=== PATIENT | female | born 1995 | race Caucasian/White ===

== ENCOUNTER 2018-09-22 12:18 | Emergency (ER) | payer OTHER ==
--- NOTE | 2018-09-22 12:31 | EDPHY ---
H & P Stated Complaint: Wound to right lower leg, not healing. Source: Patient Exam Limitations: No limitations - Personal History Current Tetanus Diphtheria and Acellular Pertussis (TDAP): Yes - Medical/Surgical History Hx Asthma: Yes Hx Chronic Respiratory Disease: No Hx Diabetes: Yes Hx Cardiac Disease: No Hx Renal Disease: No Hx Cirrhosis: No Hx Alcoholism: No Hx HIV/AIDS: No Hx Splenectomy or Spleen Trauma: No Other PMH: DM 1. Asthma. - Social History Smoking Status: Never smoked Time Seen by Provider: 09/22/18 12:26 HPI/ROS: HPI: This is a 23-year-old female who presents with Chief Complaint: Wound to right lower leg, not healing. Location: Right anterior leg Quality: Wound Duration: Several weeks Signs and Symptoms: No bleeding, no radiation, no numbness, no weakness, no tingling, no incontinence, no decreased range of motion, no swelling, no pain, no fever Timing: Not healing Severity: Moderate Context: Patient is a type 1 insulin diabetic, has insulin pump, blood sugars running in the 200, presents from primary care office with complaints of right anterior lower leg wound that has not healed over the last 2 months. Two months ago had a course of antibiotics. Has been performing local wound care without improvement in symptoms. 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 She stands on her feet approximately 8 hr per day during work. Denies dysuria, increased thirst, increased urination, fevers, radiation, weakness, decreased range of motion. Modifying Factors: Antibiotics and local wound care without improvement Comment: ROS: A comprehensive 10 system review of systems is otherwise negative aside from elements mentioned in the history of present illness. MEDICAL/SURGICAL/SOCIAL HISTORY: Medical history: Type 1 insulin-dependent diabetes mellitus, has insulin pump, asthma Surgical history: Denies Social history: Employed. Denies tobacco use. Drinks alcohol socially. CONSTITUTIONAL: Nontoxic-appearing young adult white female, awake and alert, no obvious distress HEENT: Atraumatic and normocephalic, PERRL, EOMI. Nares patent; no rhinorrhea; no nasal mucosal edema. Tympanic membranes clear. Oropharynx clear, no exudate and moist pink mucosa. Airway patent. No lymphadenopathy. No meningismus. Cardiovascular: Normal S1/S2, regular rate, regular rhythm, without murmur rub or gallop. PULMONARY/CHEST: Symmetrical and nontender. Clear to auscultation bilaterally. Good air movement. No accessory muscle usage. ABDOMEN: Soft, nondistended, nontender, no rebound, no guarding, no peritoneal signs, no masses or organomegaly. No CVAT. EXTREMITIES: 2/2 pulses, strength 5/5, left anterior watters shows hyperpigmented areas with healed ulcerations from the past. Right anterior watters shows 4 in x 2 and 0.5 in stage I/stage II ulceration with malodorous discharge; pink viable tissue and minimal surrounding erythema. No streaking. no clubbing, no cyanosis or edema. NEUROLOGICAL: no focal neuro deficits. GCS 15. SKIN: Warm and dry, no erythema. no rash. Good capillary refill. (Echo Edwards) Constitutional: Initial Vital Signs Temperature (C) 36.8 C 09/22/18 12:19 Heart Rate 97 09/22/18 12:19 Respiratory Rate 16 09/22/18 12:19 Blood Pressure 126/78 H 09/22/18 12:19 O2 Sat (%) 98 09/22/18 12:19 O2 Delivery Mode Room Air Allergies/Adverse Reactions: amoxicillin Allergy (Verified 09/22/18 12:22) Home Medications: Medication Instructions Recorded Humalog 09/22/18 Singulair 09/22/18 Medical Decision Making ED Course/Re-evaluation: Vital signs reviewed and stable upon arrival. No systemic signs to indicate SIRS. IV access, laboratory studies ordered 1245: ED decision to consult General surgery. Spoke with Dr. Marinelli who is now at bedside to evaluate the patient. Tetracaine/Marcaine placed; cleaned with Betadine; irrigated. Wet to dry dressing placed per Dr. Marinelli He will see her in the office on Thursday. Dr. Marinelli states no antibiotics are indicated. 1324: Laboratory studies reviewed. No signs of leukocytosis, anemia, platelet dysfunction, acute kidney injury, DKA. Serum glucose 325 No signs of neurovascular compromise/tenting of skin/compartment syndrome/ extremities and joints examined above and below area of concern and are neurovascularly intact. This patient was seen under the supervision of my secondary supervising physician. I evaluated and cared for this patient with attending. (Echo Edwards) I did not see this patient while she was in the emergency department. However her care was discussed with the PA while the patient was in the department. I agree with treatment plan and management (Pete León) Differential Diagnosis: Differential diagnosis includes but is not limited to diabetic ulcer, diabetic ketoacidosis, cellulitis, abscess. (Echo Edwards) - Data Points Laboratory Results: Laboratory Results 09/22/18 12:45 09/22/18 12:45 09/22/18 09/22/18 12:45 12:45 WBC 7.92 10^3/uL 10^3/uL (3.80-9.50) RBC 5.31 10^6/uL 10^6/uL (4.18-5.33) Hgb 15.5 g/dL g/dL (12.6-16.3) Hct 45.0 % % (38.0-47.0) MCV 84.7 fL fL (81.5-99.8) MCH 29.2 pg pg (27.9-34.1) MCHC 34.4 g/dL g/dL (32.4-36.7) RDW 11.9 % % (11.5-15.2) Plt Count 301 10^3/uL 10^3/uL (150-400) MPV 10.0 fL fL (8.7-11.7) Neut % (Auto) 65.2 % % (39.3-74.2) Lymph % (Auto) 24.6 % % (15.0-45.0) Millard % (Auto) 6.6 % % (4.5-13.0) Eos % (Auto) 2.4 % % (0.6-7.6) Baso % (Auto) 0.8 % % (0.3-1.7) Nucleat RBC Rel Count 0.0 % % (0.0-0.2) Absolute Neuts (auto) 5.17 10^3/uL 10^3/uL (1.70-6.50) Absolute Lymphs (auto) 1.95 10^3/uL 10^3/uL (1.00-3.00) Absolute Monos (auto) 0.52 10^3/uL 10^3/uL (0.30-0.80) Absolute Eos (auto) 0.19 10^3/uL 10^3/uL (0.03-0.40) Absolute Basos (auto) 0.06 10^3/uL 10^3/uL (0.02-0.10) Absolute Nucleated RBC 0.00 10^3/uL 10^3/uL (0-0.01) Immature Gran % 0.4 % % (0.0-1.1) Immature Gran # 0.03 10^3/uL 10^3/uL (0.00-0.10) Sodium 137 mEq/L mEq/L (135-145) Potassium 4.3 mEq/L mEq/L (3.5-5.2) Chloride 103 mEq/L mEq/L (97-110) Carbon Dioxide 25 mEq/l mEq/l (22-31) Anion Gap 9 mEq/L mEq/L (6-14) BUN 12 mg/dL mg/dL (7-23) Creatinine 0.5 mg/dL L mg/dL (0.6-1.0) Estimated GFR > 60 Glucose 325 mg/dL H mg/dL (70-100) Calcium 9.3 mg/dL mg/dL (8.5-10.4) Beta-Hydroxybutyrate 0.26 mmol/L mmol/L (0.02-0.27) Medications Given: Discontinued Medications Benzocaine/Butamben/Tetracaine HCl (Cetacaine [place]) 1 spray TP EDNOW ONE Stop: 09/22/18 13:04 Last Admin: 09/22/18 13:07 Dose: 3 spr Departure - Departure Disposition: Home, Routine, Self-Care Clinical Impression: Diabetic ulcer of lower leg associated with type 1 diabetes mellitus, Hyperglycemia due to type 1 diabetes mellitus Condition: Good Instructions: Diabetic Hyperglycemia (ED), Diabetes and Your Skin (ED) Additional Instructions: Keep the dressing dry and in place until seen at the [facility] on Thursday. Do not soak in a bathtub or go swimming until fully healed. Take Tylenol 650 mg every 4 hours and/or Ibuprofen 600 mg every 8 hours with food as needed for pain. Call [facility] tomorrow for appointment time on Thursday most likely in the afternoon to see Dr. Marinelli or Dr. Huntley. Referrals: Naomi Evans MD [Primary Care Provider] - As per Instructions Eladio Marinelli MD [Medical Doctor] - As per Instructions
[2018-09-22 12:58] LABS: PLATELET COUNT 301 10^3/uL (150-400)
[2018-09-22] MEDS ORDERED: CETACAINE SPRAY 20 GM TP ONE (13:03)
[2018-09-22 13:43] VITALS: BP 115/69
--- NOTE | 2018-09-29 12:14 | GCON ---
[f rep st] CONSULTATION DATE OF CONSULTATION: 09/22/2018 HISTORY OF PRESENT ILLNESS: Patient is a 23-year-old female seen in the ER for a right leg wound. S he has diabetes. She has had a nonhealing lesion on her right watters, secondary to direct trauma. Yenifer barriga has been present for several weeks without full healing. She is a type 1 diabetic with an insulin pump, and is having reasonably good control of her diabetes. I was consulted for wound care. 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 PAST MEDICAL HISTORY: Includes type 1 diabetes with insulin pump. She has asthma. She has had no m ajor surgeries. SOCIAL HISTORY: Reveals she does not smoke. REVIEW OF SYSTEMS: Negative on a full 10-point review. PHYSICAL EXAMINATION: GENERAL: An alert 23-year-old female in no acute distress. HEENT: Reveals n o icterus or adenopathy. She is PERRLA. NECK: Supple with full range of motion. CHEST: Clear. C ARDIAC: Regular rhythm. ABDOMEN: Soft and nontender without masses. EXTREMITIES: Reveal full ran ge of motion, full pulses. On the right watters, she has a 4 x 3 cm open wound with some small amount o f eschar, but reasonably good granulation base. She has some well-healed other lesions on the same s hin, as well as some scars on the left watters. She has full distal pulses. NEUROLOGIC: Physiologic. PSYCH: Reveals her to be alert, oriented, cooperative. IMPRESSION: Traumatic right leg wound, secondary to diabetes. PLAN: We will follow her as an outpatient with wound debridement and eventual skin graft. Risks and options have been fully discussed and she will see us in the office in 24 to 48 hours for further de bridement. /[id number]/MODL
== END 2018-09-22 13:30 | disposition home or self-care (01) ==
DX: E10.621 Type 1 diabetes mellitus with foot ulcer (principal); E10.65 Type 1 diabetes mellitus with hyperglycemia; L97.518 Non-pressure chronic ulcer of other part of right foot with other specified severity

== ENCOUNTER 2018-10-22 06:51 | Inpatient (IN) | payer BC, OTHER | END 2018-10-27 11:30 | disposition home or self-care (01) | LOC: FSGY 06:51 → F3E 09:02 ==